=== PATIENT | male | born 1985 | race Caucasian/White ===

== ENCOUNTER 2023-11-27 09:27 | Outpatient (CLI) | payer OTHER, SELFPAY | END 2023-11-27 09:28 | disposition home or self-care (01) | LOC: NFLDREF 12-02 11:20 | PROVIDERS: PCP Family Medicine; Referring Provider Family Medicine; Visit Provider Family Medicine | DX: G43.909 Migraine, unspecified, not intractable, without status migrainosus (principal); R68.82 Decreased libido; E78.00 Pure hypercholesterolemia, unspecified | CPT/HCPCS: 80048; 80061; 84270; 84402; 84403 ==

== ENCOUNTER 2024-03-05 09:56 | Outpatient (CLI) | payer OTHER, SELFPAY | END 2024-03-05 09:57 | disposition home or self-care (01) | LOC: NFLDREF 03-08 07:24 | PROVIDERS: PCP Family Medicine; Referring Provider Family Medicine; Visit Provider Family Medicine | DX: R53.83 Other fatigue (principal); R79.89 Other specified abnormal findings of blood chemistry | CPT/HCPCS: 80076; 84270; 84402; 84403; 84443 ==

== ENCOUNTER 2024-06-08 08:31 | Outpatient (CLI) | payer OTHER, SELFPAY | END 2024-06-08 08:32 | disposition home or self-care (01) | LOC: NFLDREF 06-09 11:16 | PROVIDERS: PCP Family Medicine; Referring Provider Family Medicine; Visit Provider Family Medicine | DX: R79.89 Other specified abnormal findings of blood chemistry (principal); R53.83 Other fatigue; I10 Essential (primary) hypertension | CPT/HCPCS: 80076; 84270; 84402; 84403 ==

== ENCOUNTER 2024-09-13 08:07 | Outpatient (CLI) | payer OTHER, SELFPAY | END 2024-09-13 08:08 | disposition home or self-care (01) | LOC: NFLDREF 09-17 09:16 | PROVIDERS: PCP Family Medicine; Referring Provider Family Medicine; Visit Provider Family Medicine | DX: R79.89 Other specified abnormal findings of blood chemistry (principal); R53.83 Other fatigue | CPT/HCPCS: 80061; 80076; 84270; 84402; 84403 ==

== ENCOUNTER 2025-05-19 10:57 | Outpatient (CLI) | payer OTHER, SELFPAY | END 2025-05-19 10:58 | disposition home or self-care (01) | LOC: NFLDREF 05-22 02:32 | PROVIDERS: PCP Family Medicine; Referring Provider Family Medicine; Visit Provider Family Medicine | DX: R79.89 Other specified abnormal findings of blood chemistry (principal); R53.83 Other fatigue | CPT/HCPCS: 80076; 84270; 84402; 84403 ==

== ENCOUNTER 2025-10-24 10:23 | Outpatient (CLI) | payer OTHER, SELFPAY | END 2025-10-24 10:24 | disposition home or self-care (01) | LOC: NFLDREF 10-29 17:03 | PROVIDERS: PCP Family Medicine; Referring Provider Family Medicine; Visit Provider Family Medicine | DX: Z00.00 Encounter for general adult medical examination without abnormal findings (principal); Z13.9 Encounter for screening, unspecified; R79.89 Other specified abnormal findings of blood chemistry | CPT/HCPCS: 80053; 80061; 84270; 84402; 84403 ==